=== PATIENT | male | born 1975 | race Caucasian/White ===

== ENCOUNTER 2020-05-11 01:03 | Emergency (ER) | payer BC ==
[~2020-05-11 01:03] MED LIST: OMEPRAZOLE D/R20 MG PO
[2020-05-11] MEDS ORDERED: PRILOSEC 20MG20 MG PO (01:16)
[2020-05-11 01:41] LABS: EOS # 0.2 (0.04-0.40); EOS % 2.8 % (0.0-4.0); HEMATOCRIT 42.7 % (42.0-52.0); HEMOGLOBIN 14.6 g/dL (13.5-18.0); LYMPH# 2.1 (1.50-4.00); MEAN CELL VOLUME 86 fl (78-100); MEAN CORPUSCULAR HEMOGLOBIN 29 pg (27-31); MEAN CORPUSCULAR HGB CONC 34 g/dL (33-37); MEAN PLATELET VOLUME 9.6 fl (7.4-10.4); MONO # 0.6 (0.20-0.80); NEU # 3.1 (1.40-6.50); PLATELET COUNT 235 K/mm3 (130-400); RED BLOOD COUNT 4.97 M/mm3 (4.20-5.60); RED CELL DISTRIBUTION WIDTH 13.2 % (11.5-14.5); WHITE BLOOD COUNT 6.1 K/mm3 (4.8-10.8)
[2020-05-11 01:48] LABS: ALBUMIN 4.1 g/dL (3.5-5.0)
[2020-05-11 01:49] LABS: POTASSIUM 3.7 mmol/L (3.5-5.1); SODIUM 139 mmol/L (136-145)
[2020-05-11 01:51] LABS: GLUCOSE 105 mg/dL (75-110); TOTAL PROTEIN 6.8 g/dL (6.4-8.3)
[2020-05-11 01:52] LABS: CARBON DIOXIDE 25 mmol/L (22-29)
[2020-05-11 01:53] LABS: TOTAL BILIRUBIN 0.3 mg/dL (0.2-1.2)
[2020-05-11 01:56] LABS: AST-SGOT 34 U/L (5-34)
[2020-05-11 01:58] LABS: ALT/SGPT 54 U/L (0-55)
[2020-05-11 02:06] LABS: TROPONIN-I < 0.03 ng/mL (<0.030)
[2020-05-11 04:17] LABS: D-DIMER 0.13 mg/L FEU (0.15-0.50)
[2020-05-11 07:47] VITALS: BP 139/90
== END 2020-05-11 07:30 | disposition home or self-care (01) ==
LOC: ED 01:03
PROVIDERS: Nurse Practitioner Family
DX: I31.9 Disease of pericardium, unspecified (principal); R00.2 Palpitations; K21.9 Gastro-esophageal reflux disease without esophagitis; Z82.49 Family history of ischemic heart disease and other diseases of the circulatory system
CPT/HCPCS: J1885; J2060; J2405; J7030